=== PATIENT | female | born 1965 | race Two or more races ===

== ENCOUNTER 2017-04-07 08:41 | Emergency (ER) | payer OTHER ==
[2017-04-07 09:00] VITALS: RESP 16; TEMP 98.3
[2017-04-07] MEDS ORDERED: NS 1,000 ML IV ONE (09:07)
[2017-04-07] MEDS ORDERED: FAMOTIDINE 20 MG in NS 100 ML IV ONE (09:07)
[2017-04-07] MEDS ORDERED: LIDOCAINE 2% VISCOUS 15 ML UDCUP PO ONE (09:07)
[2017-04-07] MEDS ORDERED: MAG HYDROX/AL HYDROX/SIMETH 30 ML UDCUP PO ONE (09:07)
[2017-04-07] MEDS ORDERED: ONDANSETRON 4 MG/2 ML VIAL IVP ONE (09:07)
[2017-04-07] MEDS ORDERED: HYOSCYAMINE SULFATE 0.125 MG TAB PO ONE (09:07)
--- NOTE | 2017-04-07 09:12 | EDPHY ---
H & P Time Seen by Provider: 04/07/17 08:54 HPI/ROS: Chief complaint. Possible ingestion HPI. Patient is a 52-year-old female who comes from work. She took lunch yesterday and had a bottle of milk with her lunch. She left the milk in the employ the refrigerator. Today she had 1 drink of the milk and Ms. Christine had some discomfort in her abdomen and vomited. She says there were a couple small streaks of blood in the emesis. She has burning type pain in the upper abdomen. She reports smelling the milk and it smells like solvent. She is here with another co-worker and they feel that the smell of the solvent in the milk is most compatible with TH-18u which day use commonly at work to clean printer heads. Her bottle was not labeled with her name. They have had no series food or beverage contamination at work. She does not know that there is any disgruntled employ the that may be targeting her. While her name was not on the milk bottle other employees yesterday saw her take the bottle milk out of her bag. The employ a refrigerator is not use to store solvents or chemicals. Patient felt well prior to having a drink of the milk. She felt well until she took sip of the milk. She has no chest discomfort or trouble breathing. She does say slightly dizzy. ROS Constitutional. Slightly dizzy Eyes. no problems with vision ENT. no sore throat, no nasal drainage Cardiovascular. no chest pain Respiratory. no shortness of breath, no cough Abdominal. Epigastric pain with nausea and vomiting . no problems urinating MS. no calf pain/swelling, no neck/back pain, no joint pain Skin. no rash Lymph. no swollen glands Neuro. Slight dizziness Past Medical/Surgical History: Past medical history significant for Social History: , nonsmoker, no alcohol Smoking Status: Never smoked Physical Exam: General Appearance: Alert well-developed female mild distress vital signs are stable Eyes: Pupils equal and round no pallor or injection. ENT, Mouth: Mucous membranes are moist. Respiratory: There are no retractions, lungs are clear to auscultation. Cardiovascular: Regular rate and rhythm. Gastrointestinal: Abdomen is soft with mild tenderness in the epigastrium. No masses. Bowel sounds normal Neurological: Awake and alert, sensory and motor exams grossly normal. Skin: Warm and dry, no rashes. Musculoskeletal: Neck is supple nontender. Extremities symmetrical, full range of motion. Psychiatric: Patient is oriented X 3, there is no agitation. Constitutional: Initial Vital Signs Temperature (C) 36.8 C 04/07/17 08:45 Heart Rate 70 04/07/17 08:45 Respiratory Rate 16 04/07/17 08:45 Blood Pressure 125/80 H 04/07/17 08:45 O2 Sat (%) 96 04/07/17 08:45 O2 Delivery Mode Room Air Allergies/Adverse Reactions: No Known Allergies Allergy (Unverified 04/07/17 08:58) Home Medications: Medication Instructions Recorded Ibuprofen 04/07/17 Medical Decision Making Procedures: IV normal saline. IV Zofran and Pepcid. GI cocktail. ED Course/Re-evaluation: The patient and co-worker bring CT she data from the most common solvent used and what they feel is the smell of the solvent in the milk. The safety data sheet for -18u is reviewed by me. In case of ingestion it is as there is potential for aspiration. There is also note to physician to treat symptomatic Christian and supportively. Contents include methyl ethyl ketone and acetone Contents of the milk bottle are smell by me and there is a strong smell of a solvent are mandrel cleaner. Poison Control--case #-- [id number] ethyl ketone is irritant but no systemic toxicity expected.If any systemic toxicity it would be [employer] depression including dizziness. Supportive treatment is the plan and PC agrees with my treatment plan. Re-evaluation at 10:00 a.m. and patient is stable. She is without symptoms. We discussed laboratory evaluation, discussion with poison Control, treatment plan including criteria for return and importance of follow-up further evaluation. She expresses understanding and agreement Differential Diagnosis: Apparent solvent in milk bottle. Unclear how this got there and specifically which solvent however the patient co-worker bleed they know which [place] vented is. Per poison Control is unlikely to cause systemic toxicity. With symptomatic care the patient is now asymptomatic. - Data Points Laboratory Results: Laboratory Results 04/07/17 09:10 04/07/17 09:10 04/07/17 04/07/17 09:10 09:10 WBC 5.30 10^3/uL 10^3/uL (3.80-9.50) RBC 5.01 10^6/uL 10^6/uL (4.18-5.33) Hgb 15.5 g/dL g/dL (12.6-16.3) Hct 44.5 % % (38.0-47.0) MCV 88.8 fL fL (81.5-99.8) MCH 30.9 pg pg (27.9-34.1) MCHC 34.8 g/dL g/dL (32.4-36.7) RDW 12.5 % % (11.5-15.2) Plt Count 261 10^3/uL 10^3/uL (150-400) MPV 9.3 fL fL (8.7-11.7) Neut % (Auto) 55.0 % % (39.3-74.2) Lymph % (Auto) 35.3 % % (15.0-45.0) Charles % (Auto) 6.8 % % (4.5-13.0) Eos % (Auto) 1.7 % % (0.6-7.6) Baso % (Auto) 0.8 % % (0.3-1.7) Nucleat RBC Rel Count 0.0 % % (0.0-0.2) Absolute Neuts (auto) 2.92 10^3/uL 10^3/uL (1.70-6.50) Absolute Lymphs (auto) 1.87 10^3/uL 10^3/uL (1.00-3.00) Absolute Monos (auto) 0.36 10^3/uL 10^3/uL (0.30-0.80) Absolute Eos (auto) 0.09 10^3/uL 10^3/uL (0.03-0.40) Absolute Basos (auto) 0.04 10^3/uL 10^3/uL (0.02-0.10) Absolute Nucleated RBC 0.00 10^3/uL 10^3/uL (0-0.01) Immature Gran % 0.4 % % (0.0-1.1) Immature Gran # 0.02 10^3/uL 10^3/uL (0.00-0.10) Sodium 144 mEq/L mEq/L (134-144) Potassium 3.7 mEq/L mEq/L (3.5-5.2) Chloride 103 mEq/L mEq/L (97-110) Carbon Dioxide 24 mEq/l mEq/l (22-31) Anion Gap 17 mEq/L H mEq/L (8-16) BUN 15 mg/dL mg/dL (7-23) Creatinine 0.5 mg/dL L mg/dL (0.6-1.0) Estimated GFR > 60 Glucose 96 mg/dL mg/dL (70-100) Calcium 8.9 mg/dL mg/dL (8.5-10.4) Lipase 234.0 IU/L IU/L (23-300) Medications Given: Discontinued Medications Al Hydroxide/Mg Hydroxide (Maalox Susp) 30 ml PO ONCE ONE Stop: 04/07/17 09:08 Last Admin: 04/07/17 09:40 Dose: 30 ml Sodium Chloride (Ns) 1,000 mls @ 0 mls/hr IV ONCE ONE PRN Reason: Wide Open Stop: 04/07/17 09:08 Last Admin: 04/07/17 09:25 Dose: 1,000 mls Famotidine 20 mg/ Sodium (Chloride) 102 mls @ 408 mls/hr IV EDNOW ONE Stop: 04/07/17 09:21 Last Admin: 04/07/17 09:30 Dose: 102 mls Lidocaine (Lidocaine 2% Viscous) 15 ml PO ONCE ONE Stop: 04/07/17 09:08 Last Admin: 04/07/17 09:40 Dose: 15 ml Ondansetron HCl (Zofran) 4 mg IVP EDNOW ONE Stop: 04/07/17 09:08 Last Admin: 04/07/17 09:25 Dose: 4 mg Departure - Departure Disposition: Home, Routine, Self-Care Clinical Impression: Solvent ingestion Condition: Good Instructions: Abdominal Pain (ED) Additional Instructions: You may eat and drink normally. Return for worsening symptoms including worsening abdominal pain, vomiting, worsening dizziness. Recheck in 1 day for any continuing symptoms Referrals: NONE *PRIMARY CARE P,. [Primary Care Provider] - As per Instructions Work Comp Referral [facility] [Outside] - As per Instructions Stand Alone Forms: Work Excuse
[2017-04-07 09:27] LABS: % IMMATURE GRANULYOCYTES 0.4 % (0.0-1.1); ABSOLUTE IMMATURE GRANULOCYTES 0.02 10^3/uL (0.00-0.10); ADD DIFF? NO; ADD MORPH? NO; ADD SCAN? NO; ATYPICAL LYMPHOCYTE FLAG 0 (0-99); FRAGMENT RBC FLAG 0 (0-99); HEMATOCRIT 44.5 % (38.0-47.0); HEMOGLOBIN 15.5 g/dL (12.6-16.3); LEFT SHIFT FLG 0 (0-99); LIPEMIA HEMOLYSIS FLAG 90 (0-99); MEAN CELL HEMOGLOBIN 30.9 pg (27.9-34.1); MEAN CELL HEMOGLOBIN CONCENTR. 34.8 g/dL (32.4-36.7); MEAN CELL VOLUME 88.8 fL (81.5-99.8); MEAN PLATELET VOLUME 9.3 fL (8.7-11.7); PLATELET CLUMPS FLAG 0 (0-99); PLATELET COUNT 261 10^3/uL (150-400); RED BLOOD CELL COUNT 5.01 10^6/uL (4.18-5.33); RED CELL DISTRIBUTION WIDTH 12.5 % (11.5-15.2)
[2017-04-07 09:37] LABS: ANION GAP 17 mEq/L (8-16); CALCIUM 8.9 mg/dL (8.5-10.4); CARBON DIOXIDE 24 mEq/l (22-31); CHLORIDE 103 mEq/L (97-110); CREATININE 0.5 mg/dL (0.6-1.0); GLOMERULAR FILTRATION RATE > 60; GLUCOSE 96 mg/dL (70-100); POTASSIUM 3.7 mEq/L (3.5-5.2); SODIUM 144 mEq/L (134-144)
[2017-04-07 11:06] VITALS: BP 140/88; PULSE 67; O2SAT 98
== END 2017-04-07 10:45 | disposition home or self-care (01) ==
LOC: CED 08:41
DX: T52.91XA Toxic effect of unspecified organic solvent, accidental (unintentional), initial encounter (principal)
CPT/HCPCS: 80048-PO; 83690-PO; 85025-PO; 96374; J2405